=== PATIENT | male | born 1970 | race Caucasian/White ===

== ENCOUNTER 2018-06-25 10:01 | Inpatient (IN) | payer OTHER ==
[2018-06-25 10:06] VITALS: BMI 36.8
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
[2018-06-25] MEDS ORDERED: ALBUTEROL SO4 8 GM HFA INHALER IH PRN (14:15)
[2018-06-25] MEDS ORDERED: MENTHOL/PHENOL 1 EACH UD MM PRN (14:17)
[2018-06-25] MEDS ORDERED: MAGNESIUM CITRATE 300 ML BOTTLE PO PRN (14:17)
[2018-06-25] MEDS ORDERED: P-EPHED 60MG/TRIPROLIDI 2.5MG TABLET PO PRN (14:17)
[2018-06-25] MEDS ORDERED: MAGNESIUM HYDROX 2400MG/30ML ORAL SUSPENSION 30 ML CUP PO PRN (14:17)
[2018-06-25] MEDS ORDERED: MAG HYDROX/AL HYDROX/SIMETH 30 ML UNIT-DOSE CUP PO PRN (14:17)
[2018-06-25] MEDS ORDERED: NICOTINE POLACRILEX 2 MG GUM BUC PRN (14:17)
[2018-06-25] MEDS ORDERED: guaiFENesin/D-METHORPHAN HB 10 ML UNIT-DOSE CUPS PO PRN (14:17)
[2018-06-25] MEDS ORDERED: METHADONE HCL 10 MG TABLET (FOR DETOX USE ONLY) PO ONE ×2 (15:15→23:00)
[2018-06-25] MEDS: amLODIPine BESYLATE 10 MG TABLET (FP) PO SCH (16:00)
[2018-06-25] MEDS: chlordiazePOXIDE HCL 25 MG CAPSULE PO SCH ×2 (16:43→22:36)
[2018-06-25] MEDS: metFORMIN HCL 500 MG TABLET (FP) PO SCH (16:44)
[2018-06-25] MEDS ORDERED: PATIENT'S OWN MEDICATION (NON-FORMULARY) (Gabapentin [Neurontin] 800 MG) PO SCH (18:00)
[2018-06-25] MEDS: INSULIN SLIDING SCALE (NOVOLOG) 1 VIAL SQ SCH ×2 (21:07→22:36)
[2018-06-25] MEDS: GABAPENTIN 400 MG CAPSULE (FP) PO SCH ×2 (21:07→22:35)
[2018-06-25] MEDS ORDERED: MELATONIN 5 MG TABLETS PO PRN (22:00)
[2018-06-25] MEDS: BUDESONIDE/FORMETEROL FUMARATE 160/4.5 mcg INHALER IH SCH (22:34)
[2018-06-25] MEDS: ATORVASTATIN CA 20 MG TABLET (FP) PO SCH (22:35)
[2018-06-25] MEDS: THIAMINE HCL 100 MG TABLET (FP) PO SCH (22:36)
[2018-06-26] MEDS: chlordiazePOXIDE HCL 25 MG CAPSULE PO SCH ×4 (06:00→22:27)
[2018-06-26] MEDS: metFORMIN HCL 500 MG TABLET (FP) PO SCH ×2 (06:02→16:55)
[2018-06-26] MEDS: chlordiazePOXIDE HCL 25 MG CAPSULE PO PRN ×3 (07:25→16:09)
[2018-06-26] MEDS: INSULIN SLIDING SCALE (NOVOLOG) 1 VIAL SQ SCH ×4 (08:10→22:33)
[2018-06-26] MEDS ORDERED: hydrOXYzine PAMOATE 50 MG CAPSULE (FP) PO ONE (09:35)
[2018-06-26] MEDS: METHADONE HCL 10 MG TABLET (FOR DETOX USE ONLY) PO SCH ×2 (09:51→09:52)
[2018-06-26] MEDS: amLODIPine BESYLATE 10 MG TABLET (FP) PO SCH (09:53)
[2018-06-26] MEDS: BUDESONIDE/FORMETEROL FUMARATE 160/4.5 mcg INHALER IH SCH ×2 (09:58→22:28)
[2018-06-26] MEDS ORDERED: NICOTINE 21 MG/24 HOURS TOPICAL PATCH TD SCH (10:00)
[2018-06-26] MEDS ORDERED: LISINOPRIL 10 MG TABLET (FP) PO SCH (10:00)
[2018-06-26] MEDS ORDERED: GABAPENTIN 400 MG CAPSULE (FP) PO SCH (10:00)
[2018-06-26] MEDS ORDERED: PRENATAL VITAMINS W/ FOLIC ACID TABLET (FP) PO SCH (10:00)
[2018-06-26 10:37] LABS: HEMATOCRIT 43.2 % (35.4-49); HEMOGLOBIN 14.8 GM/dL (11.7-16.9); MCH 30.3 pg (25.7-33.7); MCHC 34.3 g/dl (32.0-35.9); MEAN CELL VOLUME 88.3 fl (80-96); MEAN PLT VOLUME 8.1 fl (7.5-11.1); PLATELET COUNT 231 K/MM3 (134-434); RBC 4.89 M/mm3 (4.00-5.60); RDW 15.6 % (11.9-15.9); WHITE BLOOD COUNT 10.5 K/mm3 (4.0-10.0)
--- NOTE | 2018-06-26 10:55 | PN ---
[facility] CIWA - CIWA Score Nausea/Vomitin-Mild Nausea/No Vomiting Muscle Tremors: 4-Moderate,w/Arms Extend Anxiety: 3 Agitation: 3 Paroxysmal Sweats: 3 Orientation: 0-Oriented Tacttile Disturbances: 0-None Auditory Disturbances: 0-None Visual Disturbances: 0-None Headache: 1-Very Mild CIWA-Ar Total Score: 15 BHS COWS - Scale Resting Pulse: 1= [place] 81-100 Sweatin=Flushed/Facial Moisture Restless Observation: 1= Difficult to Sit Still Pupil Size: 0= Normal to Room Light Bone or Joint Aches: 2= Severe Diffuse Aches Runny Nose/ Eye Tearin= Runny Nose/Eyes GI Upset > 30mins: 2= Nausea/Diarrhea Tremor Observation of Outstretched Hands: 2= Slight Tremor Visible Yawning Observation: 2= >3x During Session Anxiety or Irritability: 2=Irritable/Anxious Goose Flesh Skin: 3=Piloerection COWS Score: 19 S Progress Note (SOAP) Subjective: agitation sweats shakes body aches interrupted sleep irritable i need to take the medication I showed the doctor downstairs Objective: 06/26/18 10:47 Vital Signs Temperature 98.1 F 06/26/18 09:28 Pulse Rate 90 06/26/18 09:28 Respiratory Rate 18 06/26/18 09:28 Blood Pressure 135/84 06/26/18 09:28 O2 Sat by Pulse Oximetry (%) Laboratory Tests 06/25/18 06/26/18 06/26/18 11:30 05:59 06:00 WBC 10.5 H RBC 4.89 Hgb 14.8 Hct 43.2 MCV 88.3 MCH 30.3 MCHC 34.3 RDW 15.6 D Plt Count 231 MPV 8.1 POC Glucometer 209 150 rest of labs pending aaox3 ambulating no acute distress Assessment: 06/26/18 11:07 withdrawal sx Plan: continue detox increase fluids lidocaine patch motrin 800mg tid prn baclofen 10mg tid gabapentin 800mg tid trazadone 50mg x one now then at night
[2018-06-26] MEDS ORDERED: hydrOXYzine PAMOATE 50 MG CAPSULE (FP) PO PRN (11:01)
[2018-06-26 11:20] LABS: ALBUMIN 4.1 g/dl (3.4-5.0); ALK PHOS 127 U/L (45-117); ANION GAP 7 MMOL/L (8-16); BILIRUBIN,TOTAL 0.5 mg/dL (0.2-1); BLOOD UREA NITROGEN 12 mg/dL (7-18); CHLORIDE 101 mmol/L (98-107); CO2 29 mmol/L (21-32); CREATININE 0.8 mg/dL (0.55-1.3); GLUCOSE,RANDOM 99 mg/dL (74-106); POTASSIUM 4.2 mmol/L (3.5-5.1); SGOT/AST 27 U/L (15-37); SGPT/ALT 51 U/L (13-61); SODIUM 137 mmol/L (136-145); TOT PROT 7.4 g/dl (6.4-8.2)
[2018-06-26] MEDS ORDERED: BACLOFEN 10 MG TABLET (FP) PO ONE (11:25)
[2018-06-26] MEDS ORDERED: traZODone HCL 50 MG TABLET (FP) PO ONE (11:25)
[2018-06-26 13:14] VITALS: TEMP 98.2
[2018-06-26] MEDS: BACLOFEN 10 MG TABLET (FP) PO SCH ×2 (14:19→22:27)
[2018-06-26] MEDS: GABAPENTIN 400 MG CAPSULE (FP) PO SCH ×2 (14:19→22:27)
--- NOTE | 2018-06-26 14:19 | EKG ---
Test Reason : Blood Pressure : / mmHG Vent. Rate : 090 BPM Atrial Rate : 090 BPM P-R Int : 142 ms QRS Dur : 088 ms QT Int : 344 ms P-R-T Axes : 064 054 048 degrees QTc Int : 420 ms NORMAL SINUS RHYTHM NORMAL ECG NO PREVIOUS ECGS AVAILABLE Confirmed by ISMAEL TOLLIVER MD ([id number]) on 06/26/2018 2:18:58 PM Referred By: Confirmed By:ISMAEL TOLLIVER MD
[2018-06-26] MEDS ORDERED: traZODone HCL 50 MG TABLET (FP) PO SCH (22:00)
[2018-06-26] MEDS: THIAMINE HCL 100 MG TABLET (FP) PO SCH (22:27)
[2018-06-26] MEDS: ATORVASTATIN CA 20 MG TABLET (FP) PO SCH (22:27)
[2018-06-27] MEDS: chlordiazePOXIDE HCL 25 MG CAPSULE PO SCH (05:45)
[2018-06-27] MEDS: GABAPENTIN 400 MG CAPSULE (FP) PO SCH (05:45)
[2018-06-27] MEDS: BACLOFEN 10 MG TABLET (FP) PO SCH (05:47)
[2018-06-27 06:20] VITALS: BP 126/59; PULSE 86
[2018-06-27] MEDS: INSULIN SLIDING SCALE (NOVOLOG) 1 VIAL SQ SCH (07:45)
[2018-06-27] MEDS: metFORMIN HCL 500 MG TABLET (FP) PO SCH (07:45)
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
--- NOTE | 2018-06-27 09:33 | DS ---
[facility] Detox Discharge Summary Admission Date: 06/25/18 Discharge Date: 06/27/18 - History Present History: Alcohol Dependence, Cannabis Dependence, Opioid Dependence - Physical Exam Results Vital Signs: Vital Signs Temperature 98.2 F 06/27/18 06:19 Pulse Rate 86 06/27/18 06:19 Respiratory Rate 18 06/27/18 06:19 Blood Pressure 126/59 L 06/27/18 06:19 O2 Sat by Pulse Oximetry (%) - Treatment Hospital Course: Detox Protocol Followed, Detoxed Safely, Responded well, Discharged Condition Good, Rehab Referral Accepted - Medication Discharge Medications: Ambulatory Orders Albuterol Sulfate [Proair Hfa -] 2 inh PO Q4H PRN 06/21/15 Amlodipine Besylate [Norvasc -] 10 mg PO DAILY 06/21/15 Atorvastatin Ca [Lipitor -] 20 mg PO HS 06/21/15 Gabapentin [Neurontin] 800 mg PO QID 06/21/15 Lisinopril [Prinivil -] 20 mg PO DAILY 06/21/15 Budesonide/Formeterol Fumarate [SYMBICORT 160/4.5mcg -] 1 inh PO BID 06/25/18 Metformin HCl [Glucophage] 500 mg PO BID 06/25/18 Varenicline Tartrate [Chantix] 0.5 - 1 mg PO ASDIR 06/25/18 Naloxone HCl [Narcan] 4 mg NS PRN #1 spray 06/27/18 - Diagnosis (1) Cannabis dependence Current Visit: Yes Status: Chronic (2) Nicotine dependence Current Visit: Yes Status: Chronic Qualifiers: Nicotine product type: cigarettes Substance use status: uncomplicated Qualified Code(s): F17.210 - Nicotine dependence, cigarettes, uncomplicated (3) Alcohol dependence with uncomplicated withdrawal Current Visit: Yes Status: Chronic (4) COPD (chronic obstructive pulmonary disease) Current Visit: No Status: Acute Qualifiers: COPD type: chronic bronchitis Chronic bronchitis type: simple Qualified Code(s): J41.0 - Simple chronic bronchitis (5) Hypercholesteremia Current Visit: No Status: Acute (6) Hypertension Current Visit: Yes Status: Acute Qualifiers: Hypertension type: essential hypertension Qualified Code(s): I10 - Essential (primary) hypertension (7) Opioid dependence with withdrawal Current Visit: Yes Status: Chronic - AMA Did Patient Leave Against Medical Advice: Yes (going home)
[2018-06-27] MEDS ORDERED: METHADONE HCL 5 MG TABLET (FOR DETOX USE ONLY) PO SCH (10:00)
[2018-06-27] MEDS ORDERED: chlordiazePOXIDE 5 MG CAPSULE PO SCH (17:00)
[2018-06-28] MEDS ORDERED: METHADONE HCL 10 MG TABLET (FOR DETOX USE ONLY) PO SCH (10:00)
[2018-06-28] MEDS ORDERED: chlordiazePOXIDE HCL 10 MG CAPSULE PO SCH (17:00)
[2018-06-29] MEDS ORDERED: METHADONE HCL 5 MG TABLET (FOR DETOX USE ONLY) PO SCH (06:00)
== END 2018-06-27 08:13 | disposition home or self-care (01) | DRG 773 ==
LOC: YASAS 10:01 → Y6N 14:55
PROVIDERS: ADMIT Neuromusculoskeletal Medicine & OMM; ATTEND Neuromusculoskeletal Medicine & OMM
PROC: HZ2ZZZZ Detoxification Services for Substance Abuse Treatment (ICD-10-PCS; principal; 2018-06-25)
DX: F11.23 Opioid dependence with withdrawal (principal); F10.230 Alcohol dependence with withdrawal, uncomplicated; F12.20 Cannabis dependence, uncomplicated; F17.210 Nicotine dependence, cigarettes, uncomplicated; I10 Essential (primary) hypertension; J41.0 Simple chronic bronchitis; E78.5 Hyperlipidemia, unspecified; E11.9 Type 2 diabetes mellitus without complications; K21.9 Gastro-esophageal reflux disease without esophagitis; R00.0 Tachycardia, unspecified; Z79.84 Long term (current) use of oral hypoglycemic drugs; Z88.0 Allergy status to penicillin; Z88.6 Allergy status to analgesic agent; Z88.8 Allergy status to other drugs, medicaments and biological substances; Z91.013 Allergy to seafood
CPT/HCPCS: 36415; 80053; 82962; 85027; 86593; 87389; 93005; 93010; J0475